=== PATIENT | male | born 1955 | race Caucasian/White ===

== ENCOUNTER 2024-05-22 08:02 | Inpatient (IN) ==
--- OUTSIDE RECORDS SUMMARY | 2024-05-22 08:31 | External Medical Summary | Continuity of Care Document ---
Author Name Unknown Organization [facility] [address] [facility] Address [address] [place], [place] [id number] Care Team Providers Care Battery Hand Name Role Phone Maryanne Ian Card Primary Care Physician [phone] [id number] Date(s): 12/20/23 - 12/20/[address] [facility] [address] [facility], [address] [place] [address] [phone] Encounter Diagnosis NICM (nonischemic cardiomyopathy)(Discharge Diagnosis) - 12/20/23 Afib(Discharge Diagnosis) - 12/20/23 Anticoagulated(Discharge Diagnosis) - 12/20/23 HLD (hyperlipidemia)(Discharge Diagnosis) - 12/20/23 Discharge Disposition: Home or Self Care Attending Physician: DEMETRICE Appiah Sarah A Allergies, Adverse Reactions, Alerts No Known Allergies Assessment and Plan Extracted from: Title:Cardiology Office Visit Note Author:DEMETRICE Cannon rd, Sarah A Date:12/20/23 Impression: 1. History of atrial fibrillation with a rapid ventricular response which was asymptomatic. 2. History of AFib ablation in [facility] in approximately 2013. 3. Atrial flutter And atrial fibrillation with cardioversion x2 with the second event on Multaq unable to maintain sinus rhythm (June 2022) 3B. [place] [facility] [place] ablation anterior to right superior pulmonary vein,right gloria, and left atrialroofline 3C. Maintaining NSR on Amiodarone (10/2022 initiation) 4. History of nonischemic cardiomyopathy with znxrtisi-xe-nzttak global hypokinesis 05/2019 at [facility];ECHO (12/2021) withNormal left ventricular systolic function with no regional wall motion abnormalities with an Ejection fraction as calculated by Biplane Simpsons method 60-65 %. 5. Mild mitral regurgitation. 6. Diabetes mellitus type 2, uncontrolled. 7. Hypertension. Mr. Eng feels well. He has not any further A-fib on the Multaq. EKG in the office today showsnormal sinus rhythm. He continues on anticoagulation for stroke prevention. He had questions about upcomingdental procedure he is planning on and whether he can holdhis anticoagulation which he made. If necessary, he can hold his anticoagulation up to 48 hours prior to his procedure and resume soon as possible afterward. His blood pressure is well-controlled. He will have a CMP and lipids. He is also due for an echocardiogram which I will schedule as well today. Return to clinic in 6 months Medications Lyudmila Taylor Start: 06/27/19 9:46:00 AM EST, See Instructions, 50 unit subQ in AM and 25 unit subQ in PM Start Date: 06/27/19 Status: Ordered dronedarone 400 mg oral tablet Start: 10/26/23 10:51:00 AM EDT, 1 tab, PO, bid, Disp# 60 tab, Refills: 11, Pharmacy: [id number] Start Date: 10/26/23 Status: Ordered Eliquis 5 mg oral tablet Start: 04/13/21 11:39:00 AM EST, 1 tab, PO, bid, Disp# 180 tab, Refills: 3, Pharmacy: [id number] Start Date: 04/13/21 Status: Ordered Fruit and Veggie Capsule Start: 12/19/22 11:01:00 AM EDT, Fruit and Veggie Capsule Start Date: 12/19/22 Status: Ordered Jardiance 10 mg oral tablet Start: 06/21/23 10:07:00 AM EST, 1 tab, PO, Daily, Disp# 30 tab Start Date: 06/21/23 Status: Ordered metoprolol succinate 25 mg oral tablet, extended release Start: 11/02/23 1:29:00 PM EDT, 1 tab, PO, bid, Disp# 180 tab, Refills: 3, Pharmacy: [facility] Start Date: 11/02/23 Status: Ordered NexIUM 20 mg oral delayed release capsule Start: 11/03/19 10:07:00 AM EDT, 2 cap, PO, bid Start Date: 11/03/19 Status: Ordered olmesartan 40 mg oral tablet Start: 01/10/22 9:29:00 AM EDT, 1 tab, PO, Daily, Disp# 90 tab, Refills: 3, Pharmacy: [facility] Start Date: 01/10/22 Status: Ordered pravastatin 20 mg oral tablet Start: 12/13/22 3:39:00 PM EDT, 1 tab, PO, qhs, Disp# 90 tab, Refills: 3, Pharmacy: [id number] Start Date: 12/13/22 Status: Ordered Trulicity Pen 0.75 mg/0.5 mL subcutaneous solution Start: 06/14/22 1:20:00 PM EST, 0.75 mg =, subQ, q7days, Disp# 2 mL Start Date: 06/14/22 Status: Ordered Mental Status 12/20/23 Barriers to Learning one year None evide nt Mandatory Health Literacy Documentation Yes Health Literacy Communication Barriers N ever Primary Language Palauan Problem List Condition Confirmation Course Effective Dates Status H ealth Status Informant Afib Confirmed Active NICM (nonischemic cardiomyopathy) Confirmed Active Chronic systolic heart failure Confirmed Active Diabetes Confirmed Active Mitral regurgitation Confirmed Active Diagnosis Diagnosis Type Effective Dates Health Status Clinical Service Informant NICM (nonischemic cardiomyopathy) Discharge Diagnosis 12/20/23 Non-Specified HLD (hyperlipidemia) Discharge Diagnosis 12/20/23 Non-Specified Anticoagulated Discharge Diagnosis 12/20/23 Non-Specified Afib Discharge Diagnosis 12/20/23 Non-Specified Procedures Procedure Date Related Diagnosis Body Site Status Colonoscopy 09/2020 Completed EGD - Esophagogastroduodenoscopy 09/2020 Completed Vital Signs Most recent to oldest [Reference Range]: 1 Patient Weight 96 kg (12/20/23 9:22 AM) Heart Rate 76 bpm (12/20/23 9:22 AM) Respiratory Rate 18 br/min (12/20/23 9:22 AM) Blood Pressure 120/70mmHg (12/20/23 9:22 AM) BP Location # 1 Left Arm (12/20/23 9:22 AM) Social History Social History Type Response Tobacco Former smoker, Start ed age 17 Years. Stopped age 49 Years. Smoking Status Former Smoker, quit > 1 yr Sex Male Sex Representation Male (finding) Cardiology Outpatient Note * DEMETRICE Appiah Sarah A: PERFORM, MODIFY Event Display: Cardiology Outpt Note Authored Date: [id number] Primary Care Provider MD Madden Kyle David Chief Complaint Upcoming procedure/ discuss Eliquis Denies chest pressure, Palpitations, heart racing, dizziness or lightheadedness no SOB or edema. Exercise increased walking 2-3 miles 4 days a week. - no unusual bleeding, no resent ER visits History of Present Illness Mr. Eng presents for follow up of afib and flutter s/p repeat afib ablation 09/2022, NICM, andhtn. In July he was taken off of amiodarone. In September he had an episode of afib and so was placed on Multaq. Since then he has not had any further episodes of afib. He walks for exercise and feels well doing so. No sob or chest pain. Review of Systems All other systems reviewed and negative except as discussed in the HPI Physical Exam Vitals & Measurements HR:76(Monitored) RR:18 BP:120/70 SpO2:95% WT:96.000kg(Dosing) WT:96kg Physical Examination General: Alert and oriented, No acute distress. Respiratory: Lungs are clear to auscultation, Respirations are non-labored. Cardiovascular: Normal rate, Regular rhythm, No murmur, No edema, no carotid bruits to auscultation bilaterally. Integumentary: Warm, Dry, [place] Neurologic: Alert, Oriented. Cognition and Speech: Speech clear and coherent. Psychiatric: Cooperative, Appropriate mood & affect. Assessment/Plan Impression: 1. History of atrial fibrillation with a rapid ventricular response which was asymptomatic. 2. History of AFib ablation in [facility] in approximately 2013. 3. Atrial flutter And atrial fibrillation with cardioversion x2 with the second event on Multaq unable to maintain sinus rhythm (June 2022) 3B. [place] [facility] [place] Radiofrequency ablation anterior to right superior pulmonary vein,right gloria, and left atrialroofline 3C. Maintaining NSR on Amiodarone (10/2022 initiation) 4. History of nonischemic cardiomyopathy with dvlxdmxe-ud-cmtowm global hypokinesis 05/2019 at [facility];ECHO (12/2021) withNormal left ventricular systolic function with no regional wall motion abnormalities with an Ejection fraction as calculated by Biplane Simpsons [id number] %. 5. Mild mitral regurgitation. 6. Diabetes mellitus type 2, uncontrolled. 7. Hypertension. Mr. Eng feels well. He has not any further A-fib on the Multaq. EKG in the office today showsnormal sinus rhythm. He continues on anticoagulation for stroke prevention. He had questions about upcomingdental procedure he is planning on and whether he can holdhis anticoagulation which he made. If necessary, he can hold his anticoagulation up to 48 hours prior to his procedure and resume soon as possible afterward. His blood pressure is well-controlled. He will have a CMP and lipids. He is also due for an echocardiogram which I will schedule as welltoday. Return to clinic in 6 months Problem List/Past Medical History Ongoing Afib Chronic systolic heart failure Diabetes Mitral regurgitation NICM (nonischemic cardiomyopathy) Procedure/Surgical History EGD - Esophagogastroduodenoscopy| Service Date: olonoscopy| Service Date: 09/2020 Medications apixaban(Eliquis 5 mg oral tablet), 5 mg= 1 tab, PO, bid, 3 refills dronedarone(dronedarone 400 mg oral tablet), 400 mg= 1 tab, PO, bid, 11 refills dulaglutide(Trulicity Pen 0.75 mg/0.5 mL subcutaneous solution), 0.75 mg, subQ, q7days empagliflozin(Jardiance 10 mg oral tablet), 10 mg= 1 tab, PO, Daily esomeprazole(NexIUM 20 mg oral delayed release capsule), 40 mg= 2 cap, PO, bid insulin glargine(Basaglar KwikPen), See Instructions metoprolol(metoprolol succinate 25 mg oral tablet, extended release), 25 mg= 1 tab, PO, bid, 3 refills olmesartan(olmesartan 40 mg oral tablet), 40 mg= 1 tab, PO, Daily, 3 refills pravastatin(pravastatin 20 mg oral tablet), 20 mg= 1 tab, PO, qhs, 3 refills unknown medication(Fruit and Veggie Capsule) Allergies NKA Social History Smoking Status Former Smoker, quit > 1 yr Tobacco Use:Former smoker Started at age:17Years Stopped at age:49Years Electronic Signature on File CC: Ian Madden [address] [address] * Electronically Reviewed/Signed by: DEMETRICE Tomlinson Author Signature Dt/Tm:12/20/2023 09:54 AM [facility] [place] [facility] Patient Care team information Care Team Personnel Name: MD Madden Kyle David Position: Referring Member Role: Primary Care Provider Address: [address] [address] [place]"
--- OUTSIDE RECORDS SUMMARY | 2024-05-22 08:31 | External Medical Summary | Continuity of Care Document ---
Author Name Unknown Organization [place] [id number] [address] Address [address] [place], [place] [id number] Care Team Providers Care Arch Support Technician Name Role Phone Ian Madden Primary Care Physician [phone] [id number] Date(s): 02/21/24 - 02/21/24 [facility] [address], [address] [place] [address] [phone] Discharge Disposition: Home or Self Care Attending Physician: DEMETRICE Appiah Sarah A Referring Physician: DEMETRICE Appiah Sarah A Allergies, Adverse Reactions, Alerts No Known Allergies Medications Basaglar KwikPen Start: 06/27/19 9:46:00 AM EST, See Instructions, 50 unit subQ in AM and 25 unit subQ in PM Start Date: 06/27/19 Status: Ordered dronedarone 400 mg oral tablet Start: 10/26/23 10:51:00 AM EDT, 1 tab, PO, bid, Disp# 60 tab, Refills: 11, Pharmacy: [id number] Start Date: 10/26/23 Status: Ordered Eliquis 5 mg oral tablet Start: 02/13/24 11:42:00 AM EDT, 1 tab, PO, bid, Disp# 60 tab, Refills: 11, Pharmacy: [id number] Start Date: 02/13/24 Status: Ordered Fruit and Veggie Capsule Start: [...] bid, Disp# 180 tab, Refills: 3, Pharmacy: [facility] Start Date: 11/02/23 Status: Ordered NexIUM 20 mg oral delayed release capsule Start: 11/03/19 10:07:00 AM EDT, 2 cap, PO, bid Start Date: 11/03/19 Status: Ordered olmesartan 40 mg oral tablet Start: 01/10/22 9:29:00 AM EDT, 1 tab, PO, Daily, Disp# 90 tab, Refills: 3, Pharmacy: [facility] Start Date: 01/10/22 Status: Ordered pravastatin 20 mg oral tablet Start: 12/13/22 3:39:00 PM EDT, 1 tab, PO, qhs, Disp# 90 tab, Refills: 3, Pharmacy: [id number] Start Date: 12/13/22 Status: Ordered Trulicity Pen 0.75 mg/0.5 mL subcutaneous solution Start: 06/14/22 1:20:00 PM EST, 0.75 mg =, subQ, q7days, Disp# 2 mL Start Date: 06/14/22 Status: Ordered Problem List Condition Confirmation Course Effective Dates Status H ealth Status Informant Afib Confirmed Active NICM (nonischemic cardiomyopathy) Confirmed Active Chronic systolic heart failure Confirmed Active Diabetes Confirmed Active Mitral regurgitation Confirmed Active Procedures Procedure Date Related Diagnosis Body Site Status Colonoscopy 09/2020 Completed EGD - Esophagogastroduodenoscopy 09/2020 Completed Results Radiology Reports * Exam Date Time Procedure Performing Provider Status 02/21/24 2:50 PM Echo TransTHORacic TTE Complete w/ Co nt Sunday, ; Final Notes: (Echo TransTHORacic TTE Complete w/ Cont) Reason For Exam: nicm Echo TransTHORacic TTE Complete w/ Cont Report Signatures Finalized by Dr. Garcia Hamlin MD on 02/21/2024 04:16 PM [place] Act 112: No-No further action needed Summary 1. Technically difficult study due to patient body habitus; Successfully enhanced with Definity contrast per lab protocol for better endocardial definition. 2. Normal left ventricular size and systolic function with no regional wall motion abnormalities. 3. Ejection fraction as calculated by Biplane Simpsons method is 65 %. 4. No left ventricular hypertrophy. 5. Grade II diastolic dysfunction of the left ventricle (pseudonormal filling pattern) with elevated left atrial pressure. 6. Mildly dilated right ventricle with normal systolic function. 7. Mildly dilated left atrium. 8. Dilated right atrium. 9. Mild mitral regurgitation. 10. Normal estimated pulmonary artery pressure. 11. Compared to previous study from 01/10/2022 , there is no significant change. Patient Info Name: YANNICK GARRETT Age: 68 years : 1955 Gender: Male Ht: 185 cm Wt: 100 kg BSA: 2.29 m2 HR: 61 bpm BP: 140 / 80 mmHg Heart Rhythm: Sinus Rhythm Technical Quality: Technically difficult study Exam Date: 02/21/2024 1:56 PM Exam Location: [facility] Patient Status: Outpatient Staff Ordering Physician: Janell Appiah Parks Worker: Keke Wilkinson RDCS, RVT Attending Physician: Janell Appiah Study Info CPT J3490 - 83121 - Indications I42.8 - NICM (nonischemic cardiomyopathy) Procedure(s) * A complete two-dimensional, color flow and Doppler transthoracic echocardiogram was performed. * Parks Worker, Keke Wilkinson RDCS, RVT, provided education about ultrasound enhancing agent to the patient. * Failed 2D images were enhanced with Definity per lab protocol. Exam Type: Cardiac Basic Left Ventricle Normal left ventricular size and systolic function with no regional wall motion abnormalities. Ejection fraction as calculated by Biplane Simpsons method is 65 %. No left ventricular hypertrophy. Grade II diastolic dysfunction of the left ventricle (pseudonormal filling pattern) with elevated left atrial pressure. Right Ventricle Mildly dilated right ventricle with normal systolic function. TAPSE is normal, 1.8 cm. Left Atrium Mildly dilated left atrium. Right Atrium Dilated right atrium. Atrial Septum Appears intact. Aortic Valve Sclerotic, tricuspid aortic valve without stenosis or insufficiency. Pulmonic Valve Unremarkable pulmonic valve. Mitral Valve Structurally normal mitral valve. Mild mitral regurgitation. Tricuspid Valve Structurally unremarkable tricuspid valve with no significant flow abnormalities. Normal estimated pulmonary artery pressure. Pericardium/Pleural No pericardial effusion. Inferior Vena Cava Normal IVC size and inspiratory collapse. Estimated right atrial pressure is 3 mmHg. Aorta Normal aortic root, ascending aorta and aortic arch. Calcified sinotubular junction. Left Ventricular Outflow Tract Name Value Normal LVOT 2D LVOT Diameter 2.5 cm LVOT Doppler LVOT Peak Velocity 0.93 m/s LVOT Peak Gradient 3 mmHg LVOT Mean Gradient 2 mmHg LVOT VTI 20.37 cm LVOT Stroke Volume 99.33 ml LVOT Stroke Volume Index 0.04 l/m2 LVOT Cardiac Output 6.06 l/min LVOT Cardiac Index 2.65 L/min/m2 Pulmonic Valve Name Value Normal PV 2D RVOT Diameter (2D) 3.0 cm 1.7-2.7 RVOT Doppler RVOT Peak Velocity 0.49 m/s PV Doppler PV Peak Velocity 1.46 m/s Mitral Valve Name Value Normal MV Doppler MV PHT 65 ms MV Diastolic Function MV E Peak Velocity 0.87 m/s <=0.50 MV A Peak Velocity 0.52 m/s MV E/A 1.66 <=0.80 MV Decel Time 225 ms MV Annular TDI MV Septal s' Velocity 6.22 cm/s MV Septal e' Velocity 5.43 cm/s >=7.00 MV E/e' (Septal) 16.0 <=8.0 MV Lateral s' Velocity 5.61 cm/s MV Lateral e' Velocity 5.87 cm/s >=10.00 MV E/e' (Lateral) 14.77 <=8.00 MV e' Average 5.65 MV E/e' (Average) 15.37 <=14.00 Tricuspid Valve Name Value Normal TV Regurgitation Doppler TR Peak Velocity 1.81 m/s <=2.80 TR Peak Gradient 13 mmHg Estimated PAP/RSVP RA Pressure 3 mmHg <=5 PA Systolic Pressure 16 mmHg <40 TV Diastolic Function TV E Peak Velocity 0.40 m/s TV A Peak Velocity 0.27 m/s TV E/A 1.50 0.80-2.00 TV Decel Time 137 ms >=120 TV Annular TDI TV Lateral Michelle s' Velocity 12.6 cm/s 9.5-18.7 TV Lateral Michelle e' Velocity 9.3 cm/s <7.8 TV E/e' 4.34 2.00-6.00 Aorta Name Value Normal Ascending Aorta Sinus of Valsalva Diameter 3.4 cm 3.1-3.7 Sinus of Valsalva Index 1.50 cm/m2 1.50-1.90 Prox Asc Ao Diameter 3.2 cm 2.6-3.4 Prox Asc Ao Diameter Index 1.38 cm/m2 1.30-1.70 Thoracic Aorta Ao Arch Diameter 2.2 cm Desc Ao Peak Velocity 0.89 m/s Desc Ao Peak Gradient 3 mmHg Venous Name Value Normal IVC/SVC IVC Diameter (Insp 2D) 0.8 cm IVC Diameter (Exp 2D) 1.8 cm <=2.1 IVC Diameter Percent Change (2D) 55 % >=50 Aortic Valve Name Value Normal AV Doppler AV Peak Velocity 1.31 m/s <2.00 AV Area (Cont Eq Howard) 3.5 cm2 AV Area Index (Cont Eq Howard) 1.52 cm2/m2 AV V1/V2 Ratio 0.71 AV Regurgitation 2D LVOT Area 4.9 cm2 Ventricles Name Value Normal LV Dimensions 2D/MM IVS Diastolic Thickness (2D) 1.0 cm 0.6-1.0 LVID Diastole (2D) 5.5 cm 3.6-5.6 LVIW Diastolic Thickness (2D) 1.0 cm 0.6-1.0 LVID Systole (2D) 3.2 cm 2.5-4.0 LVOT Diameter 2.5 cm LV Mass (2D Cubed) 205.14 g 88.00-224.00 Relative Wall Thickness (2D) 0.35 LV Fractional Shortening/Ejection Fraction 2D/MM LV Fractional Shortening (2D) 42 % 25-43 LV Diastolic Volume (4C MOD) 134 ml LV Diastolic Volume (2C MOD) 118 ml LV Diastolic Volume (BP MOD) 126 ml 62-150 LV Diastolic Volume Index (BP MOD) 55.01 ml/m2 34.00-74.00 LV Systolic Volume (BP MOD) 41 ml 21-61 LV Systolic Volume Index (BP MOD) 18.12 ml/m2 11.00-31.00 LV EF (BP MOD) 67 % 57-68 LV SV (BP MOD) 84.35 ml RV Dimensions 2D/MM RV Basal Diastolic Dimension 4.3 cm 2.5-4.1 TAPSE 1.8 cm >=1.7 Atria Name Value Normal LA Dimensions LA Area (4C) 22.4 cm2 LA Length (4C) 6.0 cm LA Area (2C) 26.2 cm2 LA Length (2C) 6.3 cm LA Volume (4C A-L) 70.92 ml LA Volume (2C A-L) 92.73 ml LA Volume (BP A-L) 83 ml 18-58 LA Volume Index (BP A-L) 36.21 ml/m2 <=34.00 RA Dimensions RA Area (4C) 19.9 cm2 <=18.0 Final Signed by:DO Hamlin Jason D Signed (Electronic Signature):02/21/2024 1:56 p Social History Social History Type Response Tobacco Former smoker, Start ed age 17 Years. Stopped age 49 Years. Smoking Status Former Smoker, quit > 1 yr Sex Male Sex Representation Male (finding) Patient Care team information Care Team Personnel Name: MD Madden Kyle David Position: Referring Member Role: Primary Care Provider Address: [address]
[2024-05-22 10:54] LABS: Hematocrit (blood only) 43.3 % (42.0-52.0); Mean Corpuscular Hemoglobin 26.3 pg (25.0-34.0); Mean Corpuscular Hgb Conc 32.3 g/dL (32.0-36.0); Mean Corpuscular Volume 81.2 fL (80.0-100.0); Mean Platelet Volume 12.2 fL (9.4-12.4); Platelet Count 159 K/uL (130-400); RDW Coefficient of Variation 14.3 % (11.5-14.5); RDW Standard Deviation 41.7 fL (36.4-46.3); Red Blood Count 5.33 M/uL (4.70-6.10)
[2024-05-22 11:11] LABS: Alanine Aminotransferase 26 U/L (7-52); Albumin Globulin Ratio 1.4 (0.9-2); Alkaline Phosphatase 90 U/L (34-104); Anion Gap 6 (3-11); Aspartate Aminotransferase 24 U/L (13-39); BUN Creatinine Ratio 31.6 (10-20); Bilirubin,Total 0.4 mg/dl (0.2-1.0); Blood Urea Nitrogen 24 mg/dl (6-23); Calcium 9.4 mg/dl (8.6-10.3); Carbon Dioxide 28 mmol/L (21-32); Chloride 108 mmol/L (98-107); Chol HDL Ratio 2.4 (0-5); Cholesterol 122 mg/dl (0-200); Globulin 2.8 gm/dl (2.5-4.0); Glucose 63 mg/dl (70-99(Fasting)); HDL Cholesterol 50 mg/dl; LDL Cholesterol Calculated 55 mg/dl; Magnesium 1.6 mg/dl (1.7-2.4); Potassium 3.5 mmol/L (3.5-5.1); Sodium 142 mmol/L (136-145); Total Protein 6.8 gm/dl (6.0-8.3); Triglycerides 85 mg/dl (0-150); VLDL Cholesterol 17 mg/dl (0-30)
[2024-05-22] MEDS: APIXABAN 5 MG TABLET PO SCH (11:26)
[2024-05-22] MEDS: LOSARTAN POTASSIUM 50 MG TAB PO SCH (11:41)
[2024-05-22] MEDS: EMPAGLIFLOZIN 25 MG TAB PO SCH (11:41)
[2024-05-22] MEDS: METOPROLOL SUCC 25MG EXT REL TAB PO SCH (11:41)
[2024-05-22] MEDS: PANTOprazole 40 MG TAB PO SCH (11:42)
[2024-05-22 12:02] LABS: Estimated Average Glucose 174 mg/dl; Hemoglobin A1C 7.7 % (4.5-5.6)
[2024-05-22] MEDS: DOFETILIDE 125 MCG CAPSULE PO ONE (12:04)
--- NOTE | 2024-05-22 13:10 | History & Physical Report ---
Date of Service May 22, 2024 Assessment & Plan (1) Paroxysmal atrial fibrillation: (2) Hyperglycemia due to type 2 diabetes mellitus: (3) Hypercholesterolemia: Plan He is admitted for initiation of Tikosyn 500 mcg p.o. twice daily. He will have EKGs done after each dose. As long as his QT interval tolerates the meds start he will likely be here for a total of 6 doses. His baseline labs were checked including his A1c. Will follow Accu-Cheks while he is here in the hospital. Anticipate he will be able to be discharged Sunday evening after his sixth dose. Admission and Anticipated Discharge Date Admission Date: May 22, 2024 Anticipated date of discharge: 05/24/24 History of Present Illness Chief Complaint: Here for initiation of Tikosyn Primary Care Provider: Ian Madden MD Please see the patient's recent outpatient cardiology visit. Apparently his Multaq has not been covered by his [employer] insurance and he cannot afford to continue this medication. The Multaq was washed out of his system and he is being admitted to the hospital to initiate Tikosyn to control his paroxysmal atrial fibrillation. He has no specific complaints at this time. His past medical history was reviewed his diabetes was reviewed as well as his current medications and his insulin regimen. He reports that he is not always compliant with taking his normal dose of Lantus in the morning because sometimes his blood sugar runs on the low side and he is nervous about bottoming out his sugar. I will check a hemoglobin A1c and will check Accu-Cheks on him while he is here in the hospital. His baseline EKG done shows normal sinus rhythm with a normal QT interval. Allergies Allergy/AdvReac Type Severity Reaction Status Date / Time No Known Allergies Allergy Verified 10/11/23 09:57 Home Medications Medication Instructions Recorded Confirmed Type apixaban 5 mg tablet (Eliquis) 5 mg PO BID 10/19/20 10/11/23 History metoprolol tartrate 50 mg tablet 50 mg PO BID 10/19/20 10/11/23 History olmesartan 40 mg tablet 40 mg PO QAM 10/19/20 10/11/23 History dulaglutide 0.75 mg/0.5 mL 0.75 mg subcut WK 06/15/22 10/11/23 History subcutaneous pen injector (Trulicity) insulin glargine 100 unit/mL (3 25 - 50 unit subcut BID 06/15/22 10/11/23 History mL) subcutaneous pen (Lantus Solostar U-100 Insulin) pravastatin 20 mg tablet 20 mg PO HS 06/15/22 10/11/23 History amiodarone 200 mg tablet 200 mg PO BID 11/30/22 10/11/23 History famotidine 20 mg tablet 20 mg PO BID PRN breakthrough acid 10/11/23 10/11/23 Rx reflux #180 tabs omeprazole 40 mg capsule,delayed 40 mg PO BID #180 caps 12/10/23 Rx release Past Med/Surg History Problem List Hypercholesterolemia Paroxysmal atrial fibrillation Atrial fibrillation with RVR (Acute) Hyperglycemia due to type 2 diabetes mellitus (Acute) Hypomagnesemia Atrial flutter Elevated troponin Hypomagnesemia (Acute) Elevated troponin (Acute) Acute systolic (congestive) heart failure Family history of colonic polyps Encounter for pre-operative examination Colon cancer screening GERD (gastroesophageal reflux disease) Mitral regurgitation Cardiomyopathy non-ischemic per [facility] cardio records, EF 60-65% S/P [place] of [place] fibrillation [place] [facility] [place] [facility] [place] GERD (gastroesophageal reflux disease) Type II diabetes mellitus IDDM Medical History History of COVID-19 02/2022>RESOLVED History of cardioversion multiple. most recent: 06/16/22 MAC without issue (cardioversion x 2 attempts unsuccessful) Diverticular disease A-fib dx approx 10 yrs ago > FOLLOWS WITH DR. STATON. had unsuccessful cardioversion 06/16/22 and has since added dronaderone (pt also on Eliquis) Surgical History History of carpal tunnel surgery of left wrist History of surgery scaphoid bone removal on left wrist History of colonoscopy History of esophagogastroduodenoscopy (EGD) History of cholecystectomy History of wisdom tooth extraction History of cardiac cath roughly 2013 in [place], [place]--no stents placed Family History Other No family history of adverse response to anesthesia No significant family history Social History Smoking Status: Former smoker Tobacco Type: Cigarettes Cigarettes Per Day: quit ~15 yrs ago; Second Hand Exposure: No; Do You Dip or Chew Tobacco: No; Hx Alcohol Use: No Hx Substance Use: Yes Last Used Substance Other:: 11/29/22 Substance Use Type Other:: marijuana use approx once a week > advised Preferred Language: Uzbek Communication Ability: Effective Seasoner Hand Required: No Beliefs That Will Affect Care: None Current Living Situation: Alone Current Living Situation Comment: Home Alone Feels Safe at Home: Yes Assistive Devices: Glasses Review of Systems Review of Systems: All systems reviewed & are unremarkable except as noted in HPI & below Physical Exam Physical Exam: Awake alert and oriented in no distress Respiratory: normal respiratory effort, lungs clear to auscultation Cardiovascular: RRR, no murmur, no edema Results & Data Results & Data Vital Signs (Past 12 Hours) Vital Signs Temp Pulse Pulse Resp BP Pulse Ox O2 Del Method 05/22/24 11:54 36.8 C 73 16 137/85 94 Room Air 05/22/24 09:05 36.6 C 73 14 151/95 H 97 Room Air Laboratory Results Abnormal lab results 05/22/24 05/22/24 Range/Units 10:16 13:10 Chloride 108 H (98-107) mmol/L BUN 24 H (6-23) mg/dl BUN/Creatinine Ratio 31.6 H (10-20) Glucose 63 L (70-99(Fasting)) mg/dl POC Glucose 165 H (70-99) mg/dl Hemoglobin A1c 7.7 H (4.5-5.6) % Magnesium 1.6 L (1.7-2.4) mg/dl ECG Additional Comments: Normal sinus rhythm normal QT interval Code Status & VTE Plan VTE Prophylaxis Plan VTE Prophylaxis will be ordered: No Reason for no VTE drug order: Treatment not indicated
--- NOTE | 2024-05-22 13:18 | Cardiology Progress Note ---
Date of Service May 22, 2024 Assessment & Plan (1) Paroxysmal atrial fibrillation: (2) Hyperglycemia due to type 2 diabetes mellitus: (3) Hypercholesterolemia: Plan He is admitted for initiation of Tikosyn 500 mcg p.o. twice daily. He will have EKGs done after each dose. As long as his QT interval tolerates the meds start he will likely be here for a total of 6 doses. His baseline labs were checked including his A1c. Will follow Accu-Cheks while he is here in the hospital. Anticipate he will be able to be discharged Sunday evening after his sixth dose. Admission and Anticipated Discharge Date Admission Date: May 22, 2024 Results & Data Vital Signs (Past 12 Hours) Vital Signs Temp Pulse Pulse Resp BP Pulse Ox O2 Del Method 05/22/24 11:54 36.8 C 73 16 137/85 94 Room Air 05/22/24 09:05 36.6 C 73 14 151/95 H 97 Room Air
--- NOTE | 2024-05-22 14:59 | Electrocardiogram Report ---
Test Reason : Blood Pressure : */* mmHG Vent. Rate : 69 BPM Atrial Rate : 69 BPM P-R Int : 242 ms QRS Dur : 100 ms QT Int : 438 ms P-R-T Axes : 54 46 37 degrees QTcB Int : 469 ms Sinus rhythm with 1st degree A-V block Abnormal ECG When compared with ECG of 22-May-2024 11:36, (unconfirmed) No significant change was found Confirmed by Austyn Valladares ([id number]) on 05/22/2024 2:59:20 PM Referred By: Liza Talbert Confirmed By: Austyn Valladares
[2024-05-22] MEDS ORDERED: PHARMACY GLYCEMIC MGMT CONSULT PRN (15:58)
[2024-05-22] MEDS: INSULIN ASPART PER UNIT CHARGE SC SCH (18:04)
[2024-05-22] MEDS: PRAVASTATIN SOD 20 MG TAB PO SCH (18:05)
[2024-05-22] MEDS: DOFETILIDE 125 MCG CAPSULE PO SCH (21:10)
[2024-05-22] MEDS: LANTUS PER UNIT CHARGE SQ SCH ×2 (21:12→21:30)
[2024-05-23] MEDS: ALUMINUM/MAGNESIUM SUSP 30 ML UDC PO PRN (00:12)
[2024-05-23] MEDS: INSULIN ASPART PER UNIT CHARGE SC SCH (04:40)
[2024-05-23] MEDS: MAGNESIUM OXIDE 400 MG TAB PO SCH (08:13)
--- NOTE | 2024-05-23 08:46 | Cardiology Progress Note ---
Date of Service May 23, 2024 Assessment & Plan (1) Paroxysmal atrial fibrillation: (2) Hyperglycemia due to type 2 diabetes mellitus: (3) Hypercholesterolemia: Plan Pmhx: Impression: 1. History of atrial fibrillation with a rapid ventricular response which was asymptomatic. 2. History of AFib ablation in [facility] in approximately 2013. 3. Atrial flutter And atrial fibrillation with cardioversion x2 with the second event on Multaq unable to maintain sinus rhythm (June 2022) 3B. Repeat Afib ablation at [facility] [place] with Radiofrequency ablation anterior to right superior pulmonary vein, right gloria, and left atrial roof line 3C. Maintaining NSR on Amiodarone (10/2022 initiation) 4. History of nonischemic cardiomyopathy with [id number] global hypokinesis 05/2019 at [facility]; ECHO (12/2021) with Normal left ventricular systolic function with no regional wall motion abnormalities with an Ejection fraction as calculated by Biplane Simpsons method 60-65 %. 5. Mild mitral regurgitation. 6. Diabetes mellitus type 2, uncontrolled. 7. Hypertension. Mr. Eng feels well. I reviewed his EKG from this morning and his QTc is within normal limits. He remains in sinus rhythm. He can receive his Tikosyn dosing today with EKG 2-3 hours after. As long as his QT interval tolerates the meds start he will likely be here for a total of 6 doses. He will likely discharge Sunday evening after his sixth dose of Tikosyn. He had low magnesium on labs yesterday so I've added oral replacement He is anticoagulated for stroke prevention. Blood pressure is controlled. Admission and Anticipated Discharge Date Admission Date: May 22, 2024 Subjective Mr. Eng feels well. He denies chest pain, sob, palpitations or edema. He is in SR on the monitor with occasional PACs and PVCs, no afib. Review of Systems Review of Systems: All systems reviewed & are unremarkable except as noted in HPI & below Physical Exam Constitutional: WD/WN, vitals as above Respiratory: normal respiratory effort, lungs clear to auscultation Cardiovascular: Rate/Rhythm: regular rate and regular rhythm Heart Sounds: + murmur (2/6 systolic rlsb ) Extremities: no edema Skin: no rashes, warm and dry Neurologic: moves all extremities and awake Psychiatric: A+Ox3, euthymic affect Results & Data Vital Signs (Past 12 Hours) Vital Signs Temp Pulse Pulse Resp BP Pulse Ox O2 Del Method 05/23/24 07:34 36.9 C 71 18 110/71 94 Room Air 05/23/24 07:00 67 05/23/24 03:27 37.1 C 67 18 118/73 92 Room Air 05/22/24 23:38 36.8 C 73 20 147/80 H 93 Room Air 05/22/24 21:57 76
[2024-05-23] MEDS: LANTUS PER UNIT CHARGE SQ SCH ×2 (09:18→21:02)
--- NOTE | 2024-05-23 14:32 | Electrocardiogram Report ---
Test Reason : Blood Pressure : */* mmHG Vent. Rate : 69 BPM Atrial Rate : 69 BPM P-R Int : 252 ms QRS Dur : 110 ms QT Int : 452 ms P-R-T Axes : 43 60 12 degrees QTcB Int : 484 ms Sinus rhythm with 1st degree A-V block T wave abnormality, consider anterior ischemia Prolonged QT Abnormal ECG When compared with ECG of 22-May-2024 13:17, No significant change was found Confirmed by Austyn Valladares ([id number]) on 05/23/2024 2:32:25 PM Referred By: Liza Talbert Confirmed By: Austyn Valladares
--- NOTE | 2024-05-23 14:39 | Electrocardiogram Report ---
Test Reason : Blood Pressure : */* mmHG Vent. Rate : 68 BPM Atrial Rate : 68 BPM P-R Int : 250 ms QRS Dur : 106 ms QT Int : 420 ms P-R-T Axes : 43 59 19 degrees QTcB Int : 446 ms Sinus rhythm with 1st degree A-V block with Premature atrial complexes Abnormal ECG When compared with ECG of 22-May-2024 23:30, (unconfirmed) Premature atrial complexes are now Present Confirmed by Austyn Valladares ([id number]) on 05/23/2024 2:39:44 PM Referred By: Liza Talbert Confirmed By: Austyn Valladares
--- NOTE | 2024-05-23 15:10 | Pharmacy Report ---
Pharmacy Glycemic Short Note 2 - Date of Service May 23, 2024 - Glycemic Short BSG Results (Last 24 hours): 05/22/24 05/22/24 05/23/24 17:35 19:54 04:32 POC Glucose 144 H 79 150 H 05/23/24 05/23/24 08:14 11:49 POC Glucose 138 H 119 H OUTPATIENT ANTIDIABETIC REGIMEN: * Lantus 40 units SQ qAM, 25 units SQ qPM * see below for dosing considerations * Jardiance 25mg PO qAM * HbA1c: 7.7% (05/22/24) ASSESSMENT: * Mr Eng is a 69yo diabetic M admitted for AFib. * CDE met with patient and he reports taking his Lantus 1-2 times per day, but uses more of a scale to dose himself. For example: * if BSG is less than 150, he will take 0 units * if BSG is greater than 150, he will take 20-40 units * if he takes 40 units in the AM, he will only take 20 units in the evening if BSG is greater than 200 * if he didn't take any Lantus in the morning, and BSG is greater than 200 in the evening, he will take 40 units * he reports generally taking his Lantus every other day and rarely takes more than 40 units per day * Pt's BSGs were below goal last night, but have been near/within goal range today. * Pharmacy will continue to follow and adjust regimen as indicated. PLAN FOR INPATIENT GLYCEMIC CONTROL: * Hold outpatient oral diabetes medications * Basal insulin * Last home dose of Lantus reported as 40 units 05/21 PM * Lantus 15 units x1 dose given last night * Lantus 20 units daily, beginning this morning * Lantus 0-10 units tonight, based on BSG (see EMR for details) * Bolus insulin * NovoLog per scale ACHS or Q6hrs while NPO * Goal Range: Low 110 mg/dL - High 140 mg/dL * Correction Factor: 40 mg/dL/unit * Nutritional / Prandial insulin per carb ratio of 1 unit per 15 grams CHO consumed
[2024-05-23] MEDS ORDERED: LANTUS PER UNIT CHARGE SQ SCH (21:00)
--- NOTE | 2024-05-24 12:01 | Cardiology Progress Note ---
Date of Service May 24, 2024 Assessment & Plan (1) Paroxysmal atrial fibrillation: Plan: Continue Tikosyn loading. He will not receive his second Tikosyn dose until fairly late this evening, after discussion of options, felt best that he be discharged tomorrow morning after medication has been allowed to reach plateau level and follow-up ECGs are obtained and reviewed. QTc at upper limits of normal, based on next ECG will determine whether dose adjustment is necessary. Admission and Anticipated Discharge Date Admission Date: May 22, 2024 Subjective Uneventful night. No symptoms. Denies chest pain, lightheadedness, palpitations, or dyspnea. Telemetry showed sinus rhythm first-degree AV block, rate 60 to 70 bpm. ECG this morning showed sinus rhythm at 69 bpm with first-degree AV block and nonspecific T wave flattening. QTc was 497 ms. Physical Exam Physical Exam: No distress. BP normotensive. Pulse 69 bpm and regular. Skin: no ecchymoses or generalized lesions. HEENT: unremarkable. Neck: JVP at the clavicle at 90 degrees, no carotid bruits. Lungs: clear. Cardiac: regular rhythm, normal S1-2, 2/6 apical holosystolic murmur, no diastolic murmur. Abdomen: benign. Extremities: no edema, pulses intact. Neurologic: normal affect and conversation, nonfocal. Results & Data Vital Signs (Past 12 Hours) Vital Signs Temp Pulse Pulse Resp BP Pulse Ox O2 Del Method 05/24/24 11:53 97.7 F 69 18 130/83 94 Room Air 05/24/24 08:00 Room Air 05/24/24 07:43 97.9 F 69 16 119/72 94 Room Air 05/24/24 06:49 67 05/24/24 03:08 97.9 F 66 16 134/87 94 Room Air PG Care Time/CCT Total # of Minutes Spent Total Time Spent with Patient: Total time spent is greater than 50% in coordination of care (as documented) at patient's floor/unit and/or counseling patient: Coding Level of Care Code 77220 SUB INP/OBS CARE 2/35MIN Diagnoses Paroxysmal atrial fibrillation I48.0
[2024-05-24] MEDS: DOFETILIDE 125 MCG CAPSULE PO SCH (20:26)
[2024-05-24 22:44] VITALS: RESP 16
--- NOTE | 2024-05-25 08:44 | Electrocardiogram Report ---
Test Reason : Blood Pressure : */* mmHG Vent. Rate : 70 BPM Atrial Rate : 70 BPM P-R Int : 238 ms QRS Dur : 110 ms QT Int : 456 ms P-R-T Axes : 31 66 31 degrees QTcB Int : 492 ms Sinus rhythm with 1st degree A-V block Prolonged QT Abnormal ECG When compared with ECG of 23-May-2024 18:15, QT has lengthened Confirmed by Giles Foley ([id number]) on 05/25/2024 8:44:21 AM Referred By: Liza Talbert Confirmed By: Giles Foley
--- NOTE | 2024-05-25 08:44 | Electrocardiogram Report ---
Test Reason : Blood Pressure : */* mmHG Vent. Rate : 73 BPM Atrial Rate : 73 BPM P-R Int : 238 ms QRS Dur : 104 ms QT Int : 436 ms P-R-T Axes : 122 113 167 degrees QTcB Int : 480 ms Arm lead reversal Right axis deviation Prolonged QT Abnormal ECG When compared with ECG of 23-May-2024 08:25, Lead reversal now present QRS axis Shifted right Confirmed by Giles Foley ([id number]) on 05/25/2024 8:43:37 AM Referred By: Liza Talbert Confirmed By: Giles Foley
--- NOTE | 2024-05-25 08:46 | Electrocardiogram Report ---
Test Reason : Blood Pressure : */* mmHG Vent. Rate : 69 BPM Atrial Rate : 69 BPM P-R Int : 250 ms QRS Dur : 108 ms QT Int : 464 ms P-R-T Axes : 73 47 26 degrees QTcB Int : 497 ms Sinus rhythm with 1st degree A-V block Diffuse Minor Nonspecific T wave abnormality Prolonged QT Abnormal ECG When compared with ECG of 24-May-2024 07:50, No significant change was found Confirmed by Giles Foley ([id number]) on 05/25/2024 8:46:13 AM Referred By: Liza Talbert Confirmed By: Giles Foley
--- NOTE | 2024-05-25 08:47 | Electrocardiogram Report ---
Test Reason : Blood Pressure : */* mmHG Vent. Rate : 73 BPM Atrial Rate : 73 BPM P-R Int : 234 ms QRS Dur : 106 ms QT Int : 436 ms P-R-T Axes : 47 76 21 degrees QTcB Int : 480 ms Sinus rhythm with 1st degree A-V block Prolonged QT Abnormal ECG When compared with ECG of 24-May-2024 10:41, QT has shortened Confirmed by Giles Foley ([id number]) on 05/25/2024 8:46:43 AM Referred By: Liza Talbert Confirmed By: Giles Foley
--- NOTE | 2024-05-25 08:59 | Electrocardiogram Report ---
Test Reason : Blood Pressure : */* mmHG Vent. Rate : 72 BPM Atrial Rate : 72 BPM P-R Int : 236 ms QRS Dur : 110 ms QT Int : 436 ms P-R-T Axes : 53 73 18 degrees QTcB Int : 477 ms Sinus rhythm with 1st degree A-V block Prolonged QT Otherwise normal ECG When compared with ECG of 23-May-2024 18:14, Arm lead reversal corrected QRS axis Shifted left Confirmed by Giles Foley ([id number]) on 05/25/2024 8:58:54 AM Referred By: Liza Talbert Confirmed By: Giles Foley
--- NOTE | 2024-05-25 09:00 | Electrocardiogram Report ---
Test Reason : Blood Pressure : */* mmHG Vent. Rate : 72 BPM Atrial Rate : 72 BPM P-R Int : 246 ms QRS Dur : 106 ms QT Int : 448 ms P-R-T Axes : 60 48 18 degrees QTcB Int : 490 ms Sinus rhythm with 1st degree A-V block Prolonged QT QT has lengthened Prolonged QT Abnormal ECG When compared with ECG of 23-May-2024 18:15, QT has lengthened Confirmed by Giles Foley ([id number]) on 05/25/2024 8:59:58 AM Referred By: Liza Talbert Confirmed By: Giles Foley
[2024-05-25 11:19] VITALS: BP 110/73; TEMP 97.9; O2SAT 97
[2024-05-25 14:14] VITALS: PULSE 73
--- NOTE | 2024-05-25 14:22 | Electrocardiogram Report ---
Test Reason : Blood Pressure : */* mmHG Vent. Rate : 70 BPM Atrial Rate : 70 BPM P-R Int : 234 ms QRS Dur : 108 ms QT Int : 442 ms P-R-T Axes : 66 79 32 degrees QTcB Int : 477 ms Sinus rhythm with 1st degree A-V block Nonspecific T wave abnormality Anteroseptal leads Abnormal ECG When compared with ECG of 25-May-2024 09:40, QT has shortened Confirmed by Giles Foley ([id number]) on 05/25/2024 2:22:28 PM Referred By: Liza Talbert Confirmed By: Giles Foley
--- NOTE | 2024-05-25 14:22 | Electrocardiogram Report ---
Test Reason : Blood Pressure : */* mmHG Vent. Rate : 77 BPM Atrial Rate : 77 BPM P-R Int : 238 ms QRS Dur : 108 ms QT Int : 448 ms P-R-T Axes : 68 78 27 degrees QTcB Int : 506 ms Sinus rhythm with 1st degree A-V block Prolonged QT Abnormal ECG When compared with ECG of 24-May-2024 22:30, QT has lengthened Confirmed by Giles Foley ([id number]) on 05/25/2024 2:21:46 PM Referred By: Liza Talbert Confirmed By: Giles Foley
--- NOTE | 2024-05-25 14:52 | Cardiology Progress Note ---
Date of Service May 25, 2024 Assessment & Plan (1) Paroxysmal atrial fibrillation: Plan: Tikosyn loading completed. As noted, morning ECG QTc was borderline therefore additional ECG obtained this afternoon to confirm QTc stability and acceptability (was 477 ms, below the threshold for dose adjustment). Spoke with [facility] pharmacist, they did not have the 250 mg dofetilide, but they did have available 125 mg doses so he will be taking 2 of these twice a day. Okay for discharge. He is to arrange follow-up with Dr. Hamlin. Admission and Anticipated Discharge Date Admission Date: May 22, 2024 Subjective Uneventful night. No symptoms. Denies chest pain, lightheadedness, palpitations, or dyspnea. Telemetry showed sinus rhythm first-degree AV block, rate 60 to 70 bpm. ECG this morning showed sinus rhythm at 69 bpm with first-degree AV block and minor anteroseptal T wave inversions. QTc was 506 ms. In order not to confirm that the QTc was not rising, repeat ECG was done this afternoon and showed a QTc of 477 ms. Physical Exam Physical Exam: No distress. BP normotensive. Pulse 73 bpm and regular. Skin: no ecchymoses or generalized lesions. HEENT: unremarkable. Neck: JVP at the clavicle at 90 degrees, no carotid bruits. Lungs: clear. Cardiac: regular rhythm, normal S1-2, 2/6 apical holosystolic murmur, no diastolic murmur. Abdomen: benign. Extremities: no edema, pulses intact. Neurologic: normal affect and conversation, nonfocal. Results & Data Vital Signs (Past 12 Hours) Vital Signs Temp Pulse Pulse Pulse Resp BP Pulse Ox 05/25/24 14:46 97.9 F 73 72 16 110/73 97 05/25/24 14:13 73 05/25/24 11:19 97.9 F 72 16 110/73 97 05/25/24 07:46 98.1 F 69 16 107/69 94 05/25/24 07:01 67 O2 Del Method 05/25/24 14:46 05/25/24 14:13 05/25/24 11:19 Room Air 05/25/24 07:46 Room Air 05/25/24 07:01 PG Care Time/CCT Total # of Minutes Spent Total Time Spent with Patient: Total time spent is greater than 50% in coordination of care (as documented) at patient's floor/unit and/or counseling patient: Coding Level of Care Code 64307 SUB INP/OBS CARE MIN Diagnoses Paroxysmal atrial fibrillation I48.0
--- NOTE | 2024-05-27 14:57 | Discharge Summary ---
Date of Service May 27, 2024 Admission HPI Per Admitting Provider Please see the patient's recent outpatient cardiology visit. Apparently his Multaq has not been covered by his [employer] insurance and he cannot afford to continue this medication. The Multaq was washed out of his system and he is being admitted to the hospital to initiate Tikosyn to control his paroxysmal atrial fibrillation. He has no specific complaints at this time. His past medical history was reviewed his diabetes was reviewed as well as his current medications and his insulin regimen. He reports that he is not always compliant with taking his normal dose of Lantus in the morning because sometimes his blood sugar runs on the low side and he is nervous about bottoming out his sugar. I will check a hemoglobin A1c and will check Accu-Cheks on him while he is here in the hospital. His baseline EKG done shows normal sinus rhythm with a normal QT interval. Admission Exam (Per Admitting) Constitutional Adult white male in no distress. BP normotensive. Pulse 73 bpm and regular. Skin: no ecchymoses or generalized lesions. HEENT: unremarkable. Neck: JVP at the clavicle at 90 degrees, no carotid bruits. Lungs: clear. Cardiac: regular rhythm, normal S1-2, 2/6 apical holosystolic murmur, no diastolic murmur. Abdomen: benign. Extremities: no edema, pulses intact. Neurologic: normal affect and conversation, nonfocal. Specialty Data Cardiology ECG on admission on 05/22/2024 showed sinus rhythm with first-degree AV block, nonspecific anterior T wave inversions, rate 69 bpm, QTc 469 ms. Subsequent serial ECGs all showed QTc below 500 ms with the exception of the 05/25/2024 ECG at 9:40 AM which showed QTc of 506 ms. Final ECG prior to discharge on 05/25/2024 at 1401 showed sinus rhythm with first- degree AV block at 70 bpm, nonspecific anterior T inversions, QTc of 477 ms. Discharge Data Procedures Performed Tikosyn (dofetilide) loading. Hospital Course (1) Paroxysmal atrial fibrillation: Plan Patient hospitalized for Tikosyn (dofetilide) loading per standard protocol. On the second full hospital day his Tikosyn dose was reduced from 500 mg twice daily to 250 mg twice daily due to borderline excess QT prolongation. Final ECG showed QTc less than 500 ms. Patient tolerated Tikosyn loading with no complications and no symptoms whatsoever.
== END 2024-05-25 15:24 | disposition home or self-care (01) | DRG 310 ==
LOC: 2W 08:02